=== PATIENT | male | born 1990 | race Two or more races ===

== ENCOUNTER 2020-07-04 15:46 | Emergency (ER) | payer OTHER ==
[~2020-07-04] VITALS: Ht 175.3 cm; Wt 68.0 kg
== END 2020-07-04 18:30 | disposition home or self-care (01) ==
LOC: ER 15:46 → EDBD 16:07 → ER 16:07
DX: R10.84 Generalized abdominal pain (principal); M54.5 Low back pain

== ENCOUNTER 2020-07-11 09:33 | Emergency (ER) | payer OTHER ==
[~2020-07-11] VITALS: Ht 175.3 cm; Wt 68.0 kg
[2020-07-11] MEDS ORDERED: ULTRAM50 MG PO (13:54)
[2020-07-11] MEDS ORDERED: CYCLOBENZAPRINE10 MG PO (13:54)
== END 2020-07-11 13:58 | disposition home or self-care (01) ==
LOC: ER 09:33
DX: N20.0 Calculus of kidney (principal); M54.89 Other dorsalgia

== ENCOUNTER 2020-09-12 18:31 | Emergency (ER) | payer OTHER ==
[~2020-09-12] VITALS: Ht 175.3 cm; Wt 68.0 kg
[~2020-09-12 18:31] MED LIST: CYCLOBENZAPRINE10 MG PO; ULTRAM50 MG PO
== END 2020-09-12 21:00 | disposition home or self-care (01) ==
LOC: ER 18:31
DX: R51.9 Headache, unspecified (principal)

== ENCOUNTER 2022-07-15 13:29 | Emergency (ER) | payer OTHER ==
[~2022-07-15] VITALS: Ht 175.3 cm; Wt 75.7 kg
== END 2022-07-15 19:10 | disposition home or self-care (01) ==
LOC: ER 13:29
DX: N39.0 Urinary tract infection, site not specified (principal)